=== PATIENT | female | born 1955 | race Caucasian/White ===

== ENCOUNTER 2022-11-17 15:40 | Emergency (ER) | payer MEDICARE, SELFPAY ==
[2022-11-17 15:43] VITALS: BP 109/64; PULSE 60; RESP 18; TEMP 36.1; O2SAT 100; BMI 31.6
--- NOTE | 2022-11-17 16:10 | EX.ED.DYSGE1 ---
HPI History of Present Illness Chief Complaint: Dizziness Informant: patient Onset/Context/Timing Onset: Days (5) Context: Sudden Onset Timing: Continuous Quality: Lightheaded Location: Generalized Worsened by: Sitting, standing Relieved by: Nothing Narrative Narrative: Patient presents with dizziness that began after a fall 5 days ago. Patient states she feels lightheaded. Patient states that she fell and hit the right side of her head. [facility]. Patient states there was no intracranial bleeding noted at that time. Patient states her dizziness feels like she is lightheaded, like she is going to pass out. Patient states it is worse with sitting and standing. Patient admits to some nausea but denies any vomiting. Patient denies any fevers or chills. Patient denies any chest pain or palpitations. [facility] Medical History (Updated 11/17/22 @ 19:[address] Mason Bernardo, DO) Diabetes mellitus Hypertension Non-alcoholic cirrhosis Home Medications calcium carbonate 600 mg calcium (1,500 mg) tablet 600 mg PO BID 02/23/17 [History Last Taken Unknown] cholecalciferol (vitamin D3) 250 mcg (10,000 unit) capsule 10,000 unit PO QWEEK 02/23/17 [History Last Taken Unknown] lisinopril 40 mg tablet (Zestril) 40 mg PO QHS 02/23/17 [History Last Taken Unknown] metformin 500 mg tablet (Glucophage) 500 mg PO DAILY 02/23/17 [History Last Taken Unknown] Allergy/AdvReac Type Severity Reaction Status Date / Time promethazine [From Phenergan] Allergy Angioedema Verified 11/17/22 15:42 amoxicillin AdvReac Nausea Verified 11/17/22 15:42 cephalexin AdvReac Abd Verified 11/17/22 15:42 cramps/diarrhea cetyl alcohol [From Cetaphil] AdvReac Other Verified 11/17/22 15:42 paraben [From Cetaphil] AdvReac Other Verified 11/17/22 15:42 propylene glycol AdvReac Other Verified 11/17/22 15:42 [From Cetaphil] rosuvastatin AdvReac Other Verified 11/17/22 15:42 skin cleanser [From Cetaphil] AdvReac Other Verified 11/17/22 15:42 soap [From Cetaphil] AdvReac Other Verified 11/17/22 15:42 sodium lauryl sulfate AdvReac Other Verified 11/17/22 15:42 [From Cetaphil] stearyl alcohol AdvReac Other Verified 11/17/22 15:42 [From Cetaphil] Surgical History (Updated 11/17/22 @ 16:[address] Mason Bernardo, ) Hx of appendectomy Hx of cholecystectomy Hx of hysterectomy Social History Smoking Status: Never smoker ROS ROS ED Constitutional Constitutional ED: Denies chills or fever(s) Eyes Eyes: Denies blurry vision or change in vision ENT ENT ED: Denies rhinorrhea or sore throat Cardiovascular Cardiovascular: Denies chest pain or palpitations Respiratory/Chest Respiratory/Chest: Denies cough or dyspnea Gastrointestinal Gastrointestinal: Reports nausea; Denies vomiting Genitourinary Genitourinary ED: Denies dysuria or hematuria Musculoskeletal Musculoskeletal: Denies back pain or neck pain Integumentary Denies abscess or rash Neurologic Neurologic: Reports headache(s); Denies weakness Allergic/Immunologic Allergic/Immunologic ED: Denies mouth swelling or urticaria EXAM Physical Exam Const Vital Signs: 11/17/22 15:43 11/17/22 16:35 11/17/22 18:47 Temperature 96.9 F L Temperature Source Temporal Pulse Rate 60 Pulse Rate [Lying] 57 L Pulse Rate [Sitting (for 1 minute prior to obtaining)] 62 Pulse Rate [Standing (for 1 minute prior to obtaining)] 65 Respiratory Rate 18 Respiratory Effort Normal Respiratory Depth Normal Respiratory Pattern Normal Blood Pressure 109/64 Blood Pressure [Lying] 101/52 L Blood Pressure [Sitting (for 1 minute prior to obtaining)] 111/56 L Blood Pressure [Standing (for 1 minute prior to obtaining)] 108/57 L Blood Pressure Mean 79 Blood Pressure Mean [Lying] 68 Blood Pressure Mean [Sitting (for 1 minute prior to obtaining)] 74 Blood Pressure Mean [Standing (for 1 minute prior to obtaining)] 74 Pulse Ox 100 Oxygen Delivery Method Room Air 11/17/22 18:51 Temperature Temperature Source Pulse Rate Pulse Rate [Lying] Pulse Rate [Sitting (for 1 minute prior to obtaining)] Pulse Rate [Standing (for 1 minute prior to obtaining)] Respiratory Rate Respiratory Effort Respiratory Depth Respiratory Pattern Blood Pressure 108/57 L Blood Pressure [Lying] Blood Pressure [Sitting (for 1 minute prior to obtaining)] Blood Pressure [Standing (for 1 minute prior to obtaining)] Blood Pressure Mean 74 Blood Pressure Mean [Lying] Blood Pressure Mean [Sitting (for 1 minute prior to obtaining)] Blood Pressure Mean [Standing (for 1 minute prior to obtaining)] Pulse Ox Oxygen Delivery Method Positive well nourished and well developed General Appearance ED: well developed and NAD HEENT Reports moist mucous membranes HEENT Narrative: There is area of ecchymosis over the right frontal and temporal area along with the right periorbital area. There is a hematoma noted over the right frontal area. There is no bony crepitance or step-off. Eyes PERRL and EOMs intact bilaterally Neck supple and no JVD Resp normal respiratory effort and clear to auscultation bilaterally Cardio regular rate and regular rhythm GI non-tender and non-distended Palpation: soft Extremity normal to inspection General Extremety ED: Negative for edema or tenderness General Extremity: Negative for edema Neuro oriented x3, CN's II-XII intact bilaterally and no sensory deficits noted Sensorium / Orientation: alert Motor Exam: strength 5/5 throughout Psych mental status grossly normal MDM MDM MDM Narrative Medical decision making narrative: Differential diagnosis includes dehydration, electrolyte abnormality, vertigo, cardiac dysrhythmia, cardiac ischemia, coagulopathy, and concussion. Since the patient had a recent normal head CT, I do not feel repeat head CT is necessary at this time. EKG will be obtained to assess for cardiac dysrhythmia and cardiac ischemia. CBC will be obtained to assess for leukocytosis and anemia. Comprehensive metabolic profile will be obtained to assess for hepatic function, renal function, and electrolyte abnormality. High-sensitivity troponin will be obtained to assess for cardiac ischemia. Lab Data Labs: Laboratory Results - last 24 hr 11/17/22 16:20 WBC 6.2 RBC 4.30 Hgb 13.3 Hct 40.8 MCV 94.9 MCH 30.9 MCHC 32.6 RDW Std Deviation 48.4 H RDW Coeff of Jace 14.0 Plt Count 147 L MPV 9.7 Immature Gran % (Auto) 0.500 Neut % (Auto) 63.2 Lymph % (Auto) 19.9 [place] % (Auto) 12.5 H Eos % (Auto) 3.1 Baso % (Auto) 0.8 Absolute Neuts (auto) 3.9 Absolute Lymphs (auto) 1.24 Nucleated RBC % 0 PT 15.5 H INR 1.2 APTT 38.1 H Sodium 140 Potassium 3.4 L Chloride 109 H Carbon Dioxide 30.0 Anion Gap 1 L BUN 19 H Creatinine 0.83 Estim Creat Clear Calc 60.81 Est GFR (MDRD) Af Amer 88 Est GFR (MDRD) Non-Af 73 BUN/Creatinine Ratio 22.8 H Glucose 111 H Calcium 9.5 Total Bilirubin 1.60 H AST 37 ALT 41 Alkaline Phosphatase 104 Troponin I High Sens 6 Total Protein 7.1 Albumin 3.2 Globulin 3.9 Albumin/Globulin Ratio 0.8 L EKG Initial EKG: Interpretation: No Acute Injury Pattern and Sinus Bradycardia (56) Comments: EKG was obtained. On my independent interpretation, it showed a sinus bradycardia with a rate of 56. FL interval, QRS interval, and QTc intervals were all normal. Dewey was normal. There are no acute ST or T wave changes. Prior EKG tracings: not available for review Prior: No Prior Treatment and Re-Evaluation :: Patient was given IV fluids and Zofran. Orthostatic vital signs were obtained and were negative. Patient is feeling better on reevaluation. Patient was instructed to drink plenty of fluids. Patient was instructed to follow-up with her primary care physician in 5 to 7 days. Patient understood and was agreeable with the plan. All questions were answered. Discharge Plan Triage Chief Complaint: Dizziness Other Complaint: Fall ED Provider: Mason Bernardo Dx/Rx/DC Orders Clinical Impression: Concussion, Dehydration Instructions: ED Concussion, ED Dehydration (Adult) Prescriptions: No Action metformin [Glucophage] 500 MG tablet 500 mg PO DAILY lisinopril [Zestril] 40 MG tablet 40 mg PO QHS calcium carbonate 600 MG tablet 600 mg PO BID cholecalciferol (vitamin D3) 10,000 UNIT capsule 10,000 unit PO QWEEK Primary Care Provider: Loki Bee Referrals: Loki Bee MD [Primary Care Provider] - 3-5 Days Disposition Disposition: Home, Self Care
--- NOTE | 2022-11-17 16:19 | NURSING ---
NO OLD EKG
[2022-11-17] MEDS: Ondansetron 4 MG/2 ML Vial IV (16:34)
[2022-11-17] MEDS: 0.9% Normal Saline (1000mL) 1,000 ML 1000 ML IV ×2 (16:34→17:25)
[2022-11-17 16:48] LABS: Absolute Lymphocyte Count 1.24 X10^3/uL (0.83-4.51); Absolute Neutrophil Count 3.9 X10^3/uL (2.0-7.7); Basophil# 0.05 X10^3/uL; Basophil% 0.8 % (0-1); Eosinophil# 0.19 X10^3/uL; Eosinophils% 3.1 % (0-5); Hematocrit 40.8 % (37-47); Hemoglobin 13.3 g/dL (12.0-15.0); Lymphocyte # 1.24 X10^3/ul (0.83-4.51); Lymphocyte % 19.9 % (19-41); Mean Corp Hgb Conc 32.6 g/dL (32-36); Mean Corpuscular Hgb 30.9 pg (27.0-32.0); Mean Corpuscular Volume 94.9 fL (81-99); Mean Platelet Vol. 9.7 fl (6.2-12.0); Monocyte# 0.78 X10^3/uL; Monocyte% 12.5 % (0-10); NRBC Flagged by Analyzer 0 % (0-5); Neutrophil # 3.93 X10^3/uL (2.7-7.7); Neutrophil % 63.2 % (47-70); Platelet Count 147 K/mm3 (150-450); RBC Distribution Width SD 48.4 fl (35.1-43.9); White Blood Count 6.2 K/mm3 (4.4-11.0)
[2022-11-17 16:58] LABS: International Normalized Ratio 1.2; Partial Thromboplast Time 38.1 Seconds (24.1-36.2); Prothrombin Time (Protime)PT. 15.5 SECONDS (11.7-14.9)
[2022-11-17 17:05] LABS: ALB/GLOB Ratio 0.8 RATIO (0.9-2.4); AST(SGOT) 37 U/L (15-37); Alanine Aminotransfer ALT/SGPT 41 U/L (13-56); Albumin, Serum 3.2 g/dL (3.2-5.0); Alkaline Phosphatase 104 U/L (45-117); Anion Gap 1 (5-15); BUN 19 mg/dL (7-18); BUN/Creat Ratio 22.8 RATIO (10-20); Calcium,Total 9.5 mg/dL (8.5-10.1); Chloride 109 mmol/L (98-107); Creatinine, Serum 0.83 mg/dL (0.55-1.02); EST Glomerular Filtration Rate 73 mL/min (>60); Est Glom Filt Rate - Afr Amer 88 mL/min (>60); Estimated Creatinine Clearance 60.81 ml/min; Globulin 3.9 g/dL (2.2-4.2); Glucose 111 mg/dL (74-106); Potassium 3.4 mmol/L (3.5-5.1); Protein, Total 7.1 g/dL (6.4-8.2); Sodium Level 140 mmol/L (136-145); Troponin-I HS 6 pg/mL (3.0-54.0)
[2022-11-17 18:47] VITALS: BP 101/52; BP 108/57; BP 111/56; PULSE 57; PULSE 62; PULSE 65
[2022-11-17 18:51] VITALS: BP 108/57
[2022-11-17 19:43] VITALS: PULSE 66; RESP 18; O2SAT 100
== END 2022-11-17 19:43 | disposition home or self-care (01) ==
PROVIDERS: Emergency Provider Emergency Medicine; PCP Family Medicine; Visit Provider Emergency Medicine
DX: S06.0X0A Concussion without loss of consciousness, initial encounter (principal); E11.9 Type 2 diabetes mellitus without complications; E86.0 Dehydration; I10 Essential (primary) hypertension; W19.XXXA Unspecified fall, initial encounter; Z79.899 Other long term (current) drug therapy; Z79.84 Long term (current) use of oral hypoglycemic drugs; Z90.49 Acquired absence of other specified parts of digestive tract; Z90.710 Acquired absence of both cervix and uterus; R11.0 Nausea
CPT/HCPCS: 80053; 84484; 85025; 85610; 85730; 93005; 96361; 96374; 99284; J7030; A4216; J2405